=== PATIENT | male | born 1995 | race Caucasian/White ===

== ENCOUNTER 2020-06-04 16:45 | Outpatient (CLI) | payer OTHER ==
--- NOTE | 2020-06-04 17:50 | MRI Report ---
PROCEDURE: Cervical Spine W/O INDICATIONS: CERVICALGIA, RT ELBOW PAIN TECHNIQUE: Noncontrast sagittal T1 spin echo and T2 fast spin echo, sagittal STIR, foraminal oblique sagittal T2 fast spin echo, and axial gradient echo or T2 fast spin echo through the cervical spine. COMPARISON: None. FINDINGS: Image quality: Motion artifact is noted. Alignment and Curvature: There is normal bony alignment. Bone Marrow: Marrow demonstrates normal overall signal. Spinal Cord: Visualized spinal cord has normal size and signal. No cerebellar tonsillar herniation. Paraspinous Soft Tissues: No paravertebral masses. Prevertebral soft tissues are normal in thicknes s. C2-C3: No significant abnormality is seen. C3-C4: The disc height is well-preserved. There is loss of disc signal seen. Mild disc osteoph yte complex is seen. There is mild right-sided and no significant left-sided neuroforaminal narrowin g seen. Minimal central canal narrowing is seen. C4-C5: The disc height is well-preserved. There is loss of disc signal seen. Mild to moderate disc o steophyte complex is seen, with a central/right disc osteophyte protrusion, as on series 701 image 17 . Moderate bilateral neural foraminal narrowing is seen. Moderate central canal narrowing is seen. Associated mass effect is seen upon the ventral spinal cord. C5-C6: Moderate loss of disc height and signal are seen. Moderate disc osteophyte complex is seen, with a central disc osteophyte extrusion. There is mild to moderate right-sided and mild left-sided f acet hypertrophy seen. There is moderate bilateral neuroforaminal narrowing seen. Moderate to severe central canal narrowing is seen. Associated mass effect is seen upon the ventral spinal cord. C6-C7: The disc height is well-preserved. There is loss of disc signal seen. Mild disc osteophyte c omplex is seen. No significant neural foraminal or central canal narrowing can be seen. C7-T1: No significant abnormality is seen. 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 Reviewed by: Walter Silva MD on 06/04/2020 4:48 PM CAROLINE Approved by: Walter Silva MD on 06/04/2020 4:48 PM CAROLINE Station ID: [id number]
== END 2020-06-04 16:46 | disposition home or self-care (01) ==
LOC: DI 16:45
PROVIDERS: ATTEND Student in an Organized Health Care Education/Training Program
DX: M47.812 Spondylosis without myelopathy or radiculopathy, cervical region (principal); M48.02 Spinal stenosis, cervical region; M25.521 Pain in right elbow
CPT/HCPCS: 72141

== ENCOUNTER 2020-07-21 14:22 | Outpatient (CLI) | payer OTHER ==
--- NOTE | 2020-07-21 18:42 | MRI Report ---
PROCEDURE: Elbow RT W/O INDICATIONS: ENTHESOPATHY TECHNIQUE: Noncontrast coronal proton density fast spin echo and T2 fast spin echo with fat saturation and gradi ent echo, axial and sagittal T1 spin echo and T2 fast spin echo with fat saturation through the elbow . COMPARISON: None. FINDINGS: Image quality: Excellent. Lateral structures: There is moderate thickening of the common extensor tendon at the origin compati ble with moderate tendinosis. The lateral ulnar collateral ligament and radial collateral ligament fatimah th appear intact. Medial structures: The ulnar collateral ligament appears intact. The overlying common flexor tendon appears normal. The ulnar nerve appears normal in size and signal within the cubital tunnel. An ac cessory anconeus epitrochlearis muscle is noted. Anterior structures: The biceps and brachialis tendons both appear intact as they insert onto the pr oximal radius and ulna, respectively. No bicipitoradial bursal fluid. The median and radial neurova scular bundles appear normal; no focal muscle atrophy to suggest nerve impingement. Posterior structures: The triceps tendon appears intact. No olecranon bursal fluid. Bone and cartilage: No bone marrow contusions or fractures. No osteochondral injuries. IMPRESSION: 1. Moderate tendinosis at the origin of the common extensor tendon without a discrete tendon tear. 2. 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 Reviewed by: George Huffman MD on 07/21/2020 6:41 PM PST Approved by: George Huffman MD on 07/21/2020 6:41 PM PST Station ID: [id number]
== END 2020-07-21 14:23 | disposition home or self-care (01) ==
LOC: DI 14:22
PROVIDERS: ATTEND Orthopaedic Surgery
DX: M67.823 Other specified disorders of tendon, right elbow (principal)

== ENCOUNTER 2021-04-21 19:18 | Emergency (ER) | payer OTHER ==
[2021-04-21 19:26] VITALS: BP 113/75
--- NOTE | 2021-04-21 19:30 | ED Physician Documentation ---
PD HPI UPPER EXT INJURY - Stated complaint Stated Complaint: RT THUMB INJ - Chief complaint Chief Complaint: Ext Problem - History obtained from History obtained from: Patient - History of Present Illness Location: Right, Finger (Thumb) Type of injury: Blunt / blow Where injury occurred: Other (GYM) Timing - onset: Today Timing - duration: Minutes Timing - details: Abrupt onset, Still present Improved by: Rest, Immobilization Worsened by: Moving, Palpating Associated symptoms: Swelling. No: Weakness, Numbness Contributing factors: No: Anticoagulated Similar symptoms before: Has not had sx before Recently seen: Not recently seen - Additonal information Additional information: 25-year-old male was playing basketball today when he was hit in the thumb with a basketball and this jammed his thumb he has some pain to the metacarpophalangeal joint as well as some swelling. Review of Systems Constitutional: denies: Fever Respiratory: denies: Cough GI: denies: Vomiting PD PAST MEDICAL HISTORY - Present Medications Home Medications: Ambulatory Orders Medication Instructions Recorded Confirmed No Known Home Medications 04/21/21 04/21/21 - Allergies Allergies/Adverse Reactions: Allergies Allergy/AdvReac Type Severity Reaction Status Date / Time No Known Drug Allergies Allergy Verified 04/21/21 19:24 PD ED PE NORMAL - Vitals Vital signs reviewed: Yes (Normal) - General General: Alert and oriented X 3, No acute distress, Well developed/nourished - HEENT HEENT: Atraumatic, PERRL, EOMI - Respiratory Respiratory: No respiratory distress - Derm Derm: Normal color, Warm and dry, No rash - Extremities Extremities: No deformity, No edema, Other (There is some swelling and point tenderness over the metacarpal phalangeal joint of the right thumb. There is some ligamentous laxity to radial deviation of the thumb and not to ulnar deviation.) - Neuro Neuro: Alert and oriented X 3, veneer drier feeder 2-12 intact, No motor deficit, No sensory deficit, Normal speech Eye Opening: Spontaneous Motor: Obeys Commands Verbal: Oriented GCS Score: 15 - Psych Psych: Normal mood, Normal affect Results - Vitals Vitals: Vital Signs - 24 hr 04/21/21 19:24 Temperature 36.6 C Heart Rate 82 Respiratory 16 Rate Blood Pressure 113/75 O2 Saturation 98 Oxygen O2 Source Room air - Rads (name of study) thumb Radiology: Prelim report reviewed (Impression: No acute findings.), EMP read indepedently, See rad report Procedures - Splint (location) right thumb Type of splint: Fiberglass, Thumb spica Other: Patient tolerated well, No complications, Neurovascular intact, Good alignment PD MEDICAL DECISION MAKING - ED course Complexity details: reviewed results, re-evaluated patient, considered differential, d/w patient ED course: 25-year-old male who is jammed his thumb is a sprain of the metacarpophalangeal joint and he is placed into a thumb spica. We will have him follow-up with orthopedics as needed. Departure - Departure Disposition: 01 Home, Self Care Clinical Impression: Sprain of right thumb Qualifiers: Encounter type: initial encounter Sprain of finger site: metacarpophalangeal joint Qualified Code(s): S63.641A - Sprain of metacarpophalangeal joint of right thumb, initial encounter Condition: Stable Instructions: ED Sprain Finger Follow-Up: Narayan Gruber MD [Provider Admit Priv/Credential] - [facility] [Provider Group] Discharge Date/Time: 04/21/21 20:06
--- NOTE | 2021-04-21 20:23 | XRAY Report ---
PROCEDURE: Hand 3 View RT INDICATIONS: jammed right thumb TECHNIQUE: 3 views of the hand acquired. COMPARISON: None. FINDINGS: Bones: No acute fractures or dislocations. No suspicious bony lesions. Soft tissues: No suspicious soft tissue calcifications. IMPRESSION: No acute osseous abnormality. If there is clinical concern or persistent symptoms, additional imaging such as repeat radiographs or advanced imaging (e.g. CT, MRI) may be helpful for further evaluation. Reviewed by: George Huffman MD on 04/21/2021 8:21 PM PDT Approved by: George Huffman MD on 04/21/2021 8:21 PM PDT Station ID: [id number]
== END 2021-04-21 20:06 | disposition home or self-care (01) ==
LOC: ED 19:18
DX: S63.641A Sprain of metacarpophalangeal joint of right thumb, initial encounter (principal); W21.05XA Struck by basketball, initial encounter; Y93.67 Activity, basketball; Y92.39 Other specified sports and athletic area as the place of occurrence of the external cause
CPT/HCPCS: 29105; 99282